=== PATIENT | male | born 1950 | race Caucasian/White ===

== ENCOUNTER 2019-05-18 12:36 | Emergency (ER) | payer MEDICARE ==
[~2019-05-18] VITALS: Ht 180.3 cm; Wt 90.7 kg
[~2019-05-18 12:36] MED LIST: AMIT50 PO; ASPI81EC PO; BENICAR; BUPR1 PO; CLON.1 PO; CYCL10 PO; DICY20 PO; DIPATR PO; ENAL10 PO; HYDACE5; IBUP800; LISI20 PO; LORA1 PO; MELO7.5 PO; META800 PO; NAPR500 PO; NEBI10 PO; NIFE30ER PO; NIFEDICAL XL; OXYACE10 PO; OXYACE5T PO; OXYACE7.5T PO; PERCOCET PO; SERT50 PO; VALD20 PO; VALS80 PO; ZOLP5 PO
[2019-05-18 13:10] LABS: Calcium, Ionized (POC) 1.21 mmol/L (1.10-1.46); Chloride (POC) 95 mmol/L (98-108); Creatinine (POC) 1.3 mg/dL (0.8-1.3); Glucose (ISTAT POC) 495 mg/dL (70-99); Hemoglobin (POC) 17.7 g/dL (13.5-17.5); Potassium (POC) 4.5 mmol/L (3.5-5.5); Sodium (POC) 132 mmol/L (135-148); Total CO2 (POC) 27 mmol/L (21-32)
[2019-05-18 13:18] LABS: BASOPHILS ABSOLUTE AUTO 0.08 K/mm3 (0.00-0.23); BASOPHILS PERCENT AUTO 1 % (0-2); EOSINOPHILS ABSOLUTE AUTO 0.23 K/mm3 (0.00-0.68); EOSINOPHILS PERCENT AUTO 2 % (0-6); Hematocrit 51.3 % (37.0-53.0); Hemoglobin 17.9 g/dL (13.5-17.5); IMMATURE GRAN ABSOLUTE AUTO 0.02 K/mm3 (0.00-0.10); IMMATURE GRAN PERCENT AUTO 0 % (0-1); LYMPHOCYTES ABSOLUTE AUTO 2.24 K/mm3 (0.84-5.20); LYMPHOCYTES PERCENT AUTO 23 % (21-46); MONOCYTES ABSOLUTE AUTO 0.59 K/mm3 (0.16-1.47); MONOCYTES PERCENT AUTO 6 % (4-13); Mean Corpuscular HGB Conc 34.9 g/dL (31.5-36.5); Mean Corpuscular Volume 92 fL (80-100); Mean Platelet Volume 11.9 fL (9.1-12.4); NEUTROPHILS ABSOLUTE AUTO 6.41 K/mm3 (1.96-9.15); NEUTROPHILS PERCENT AUTO 67 % (41-73); Platelet Count 205 K/mm3 (150-400); RDW Standard Deviation 40.7 fL (35.1-46.3); Red Blood Cell Count 5.59 M/mm3 (4.30-5.90); White Blood Cell Count 9.57 K/mm3 (4.00-11.30)
[2019-05-18 13:48] LABS: Alanine Aminotransfer (ALT/SGP 49 U/L (12-78); Albumin, Blood 3.8 g/dL (3.4-5.0); Alk Phos 153 U/L (50-136); Anion Gap 10 mmol/L (6-16); Aspartate Aminotrans (AST/SGOT 20 U/L (12-37); Bilirubin, Total 0.8 mg/dL (0.1-1.0); CO2, Blood 25 mmol/L (21-32); Chloride, Blood 98 mmol/L (98-108); Creatinine, Blood 1.19 mg/dL (0.60-1.20); Globulin, Blood 3.7 g/dL (2.2-4.0); Glomerular Filtration Rate >60 (60-); Glucose, Blood 480 mg/dL (70-99); Potassium, Blood 4.5 mmol/L (3.5-5.5); Sodium, Blood 133 mmol/L (136-145); Total Protein, Blood 7.5 g/dL (6.4-8.2)
[2019-05-18 14:09] LABS: Blood Urea Nitrogen 25 mg/dL (8-24)
[2019-05-18] MEDS ORDERED: METO50ER PO (14:23)
[2019-05-18] MEDS ORDERED: FURO80 PO (14:24)
[2019-05-18] MEDS ORDERED: AMLODIPINE BESY10 MG PO (14:24)
[2019-05-18] MEDS ORDERED: ATOR40TA PO (14:24)
[2019-05-18] MEDS ORDERED: TRAZ100 PO (14:25)
[2019-05-18] MEDS ORDERED: PRINIVIL10 MG PO (14:25)
[2019-05-18] MEDS ORDERED: TRAZ50 PO (16:20)
[2019-05-18] MEDS ORDERED: VITAMIN D21250 MCG PO (16:20)
[2019-05-18 16:40] LABS: Source, Urine Clean Catch
[2019-05-18 16:54] LABS: Bilirubin, Urine Neg (Neg); Blood, Urine Neg (Neg); Glucose Qualitative, Urine 4+ (Neg); Ketones, Urine 3+ (Neg); Leukocyte Esterase, Urine Neg (Neg); Nitrite, Urine Neg (Neg); Protein, Urine Neg (Neg); Urobilinogen, Urine NORM (Normal)
[2019-05-18 17:07] LABS: Appearance, Urine Clear (Clear); Color, Urine Pale Yellow (P-Yellow)
[2019-05-18] MEDS ORDERED: Techlite Blood1 EACH TOP (18:38)
[2019-05-18] MEDS ORDERED: TEST STRIPS1 EACH TOP (18:38)
[2019-05-18] MEDS ORDERED: METF500 PO (18:38)
== END 2019-05-18 19:41 | disposition home or self-care (01) ==
LOC: ER 12:36
PROVIDERS: Physician Assistant
DX: E11.65 Type 2 diabetes mellitus with hyperglycemia (principal); E86.0 Dehydration; I10 Essential (primary) hypertension; M54.9 Dorsalgia, unspecified; G89.29 Other chronic pain; F17.220 Nicotine dependence, chewing tobacco, uncomplicated; Z79.899 Other long term (current) drug therapy
CPT/HCPCS: 36415; 71046; 80047; 80053; 81003; 82010; 82947; 85014; 85025; 93005; 93010; 96360; 96361; 99284-25; J7030

== ENCOUNTER 2019-10-14 18:10 | Emergency (ER) | payer MEDICARE ==
[~2019-10-14] VITALS: Ht 182.9 cm; Wt 90.7 kg
[~2019-10-14 18:10] MED LIST changes: +AMLODIPINE BESY10 MG PO; +ATOR40TA PO; +FURO80 PO; +METF500 PO; +METO50ER PO; +PRINIVIL10 MG PO; +TEST STRIPS1 EACH TOP; +TRAZ100 PO; +TRAZ50 PO; +Techlite Blood1 EACH TOP; +VITAMIN D21250 MCG PO
[2019-10-14 18:46] LABS: BASOPHILS ABSOLUTE AUTO 0.08 K/mm3 (0.00-0.23); BASOPHILS PERCENT AUTO 1 % (0-2); EOSINOPHILS ABSOLUTE AUTO 0.48 K/mm3 (0.00-0.68); EOSINOPHILS PERCENT AUTO 5 % (0-6); Hematocrit 49.4 % (37.0-53.0); Hemoglobin 16.3 g/dL (13.5-17.5); IMMATURE GRAN ABSOLUTE AUTO 0.02 K/mm3 (0.00-0.10); IMMATURE GRAN PERCENT AUTO 0 % (0-1); LYMPHOCYTES ABSOLUTE AUTO 3.12 K/mm3 (0.84-5.20); LYMPHOCYTES PERCENT AUTO 32 % (21-46); MONOCYTES ABSOLUTE AUTO 0.87 K/mm3 (0.16-1.47); MONOCYTES PERCENT AUTO 9 % (4-13); Mean Corpuscular HGB 31.8 pg (26.0-34.0); Mean Corpuscular Volume 96 fL (80-100); NEUTROPHILS ABSOLUTE AUTO 5.34 K/mm3 (1.96-9.15); NEUTROPHILS PERCENT AUTO 54 % (41-73); Platelet Count 234 K/mm3 (150-400); RDW Coefficient Variation 12.7 % (11.7-14.2); RDW Standard Deviation 45.6 fL (35.1-46.3); Red Blood Cell Count 5.13 M/mm3 (4.30-5.90); White Blood Cell Count 9.91 K/mm3 (4.00-11.30)
[2019-10-14 19:00] LABS: International Normalized Ratio 1.02; Prothrombin Time Results 10.9 Sec (9.7-11.5)
[2019-10-14 19:05] LABS: Alanine Aminotransfer (ALT/SGP 37 U/L (12-78); Albumin/Globulin Ratio 1.1 (0.8-1.8); Alk Phos 110 U/L (50-136); Anion Gap 8 mmol/L (6-16); Aspartate Aminotrans (AST/SGOT 19 U/L (12-37); Bilirubin, Total 0.5 mg/dL (0.1-1.0); Blood Urea Nitrogen 19 mg/dL (8-24); Bun/Creatinine Ratio 15.1 (12.0-20.0); CO2, Blood 26 mmol/L (21-32); Calcium, Blood 9.7 mg/dL (8.5-10.1); Chloride, Blood 108 mmol/L (98-108); Creatinine, Blood 1.26 mg/dL (0.60-1.20); Ethanol (Alcohol), Blood, Med 3 mg/dL; Globulin, Blood 3.6 g/dL (2.2-4.0); Glomerular Filtration Rate >60 (60-); Glucose, Blood 168 mg/dL (70-99); Potassium, Blood 3.4 mmol/L (3.5-5.5); Sodium, Blood 142 mmol/L (136-145); Total Protein, Blood 7.6 g/dL (6.4-8.2)
[2019-10-14] MEDS ORDERED: NARCAN4 MG (20:04)
== END 2019-10-14 20:14 | disposition home or self-care (01) ==
LOC: ER 18:10
PROVIDERS: Physician Assistant
DX: F11.10 Opioid abuse, uncomplicated (principal); R41.82 Altered mental status, unspecified; E11.9 Type 2 diabetes mellitus without complications; I10 Essential (primary) hypertension; K21.9 Gastro-esophageal reflux disease without esophagitis; Z87.891 Personal history of nicotine dependence; Z79.899 Other long term (current) drug therapy
CPT/HCPCS: 36415; 70450; 70496; 80053; 82947; 85025; 85610; 85730; 93005; 93010; 96374; 99285-25; G0480; J2310; Q9967

== ENCOUNTER 2020-03-11 10:28 | Emergency (ER) | payer MEDICARE ==
[~2020-03-11] VITALS: Ht 180.3 cm; Wt 83.9 kg
[~2020-03-11 10:28] MED LIST changes: +NARCAN4 MG
== END 2020-03-11 11:32 | disposition home or self-care (01) ==
LOC: ER 10:28
DX: T40.3X1A Poisoning by methadone, accidental (unintentional), initial encounter (principal); R61 Generalized hyperhidrosis; R11.10 Vomiting, unspecified; R47.81 Slurred speech; I11.0 Hypertensive heart disease with heart failure; I50.9 Heart failure, unspecified; E11.9 Type 2 diabetes mellitus without complications; K21.9 Gastro-esophageal reflux disease without esophagitis; F17.210 Nicotine dependence, cigarettes, uncomplicated; F17.220 Nicotine dependence, chewing tobacco, uncomplicated; Z79.84 Long term (current) use of oral hypoglycemic drugs; Z79.899 Other long term (current) drug therapy
CPT/HCPCS: 36415; 93005; 93010; 99284-25